=== PATIENT | female | born 1950 | race Caucasian/White ===

== ENCOUNTER 2023-12-02 15:09 | Emergency (ER) | payer OTHER ==
[~2023-12-02] VITALS: Ht 170.2 cm; Wt 68.0 kg
[2023-12-02 15:30] VITALS: BP 205/83; PULSE 82; RESP 16; O2SAT 99
[2023-12-02 16:25] VITALS: TEMP 98.2
[2023-12-02] MEDS: ACETAMINOPHEN 500MG TABLET PO ONE (16:25)
== END 2023-12-02 16:30 | disposition home or self-care (01) ==
LOC: ER 15:09
DX: S62.101A Fracture of unspecified carpal bone, right wrist, initial encounter for closed fracture (principal); X58.XXXA Exposure to other specified factors, initial encounter; Y93.89 Activity, other specified; Y92.89 Other specified places as the place of occurrence of the external cause; Y99.8 Other external cause status
CPT/HCPCS: 29125; 73110; 99283